=== PATIENT | female | born 2000 | race African-American/Black ===

== ENCOUNTER 2024-04-02 08:00 | Outpatient (CLI) | payer OTHER | END 2024-04-02 23:59 | disposition home or self-care (01) | LOC: LAB.N 08:00 | PROVIDERS: ATTEND Physician Assistant Medical | DX: J02.9 Acute pharyngitis, unspecified (principal) | CPT/HCPCS: 87070 ==

== ENCOUNTER 2024-04-05 18:50 | Emergency (ER) | payer OTHER ==
--- NOTE | 2024-04-05 20:11 | ED Physician Documentation ---
PD HPI HEENT - Stated complaint Stated Complaint: THROAT PX - Chief complaint Chief Complaint: Heent - History obtained from History obtained from: Patient - Additional information Additional information: HPI from patient. Patient complains of approximately 1 week of gradual onset, constant, steadily progressive left-sided posterior throat pain. Denies fever. Pain is worse with swallowing. Denies history of similar symptoms. Has had outpatient rapid strep tests x 2, both results were negative. Presents due to pain and swelling continuing to worsen. Review of Systems Constitutional: denies: Fever Throat: reports: Sore throat PD PAST MEDICAL HISTORY - Past Medical History Past Medical History: No - Past Surgical History Past Surgical History: No - Present Medications Home Medications: Ambulatory Orders Medication Instructions Recorded Confirmed Amox/Clav 875/125 [Augmentin 1 tablet PO Q12H 10 Days #20 tablet 04/05/24 875/125 Tab] Oxycodone HCl/Acetaminophen 1 - 2 each PO Q6H PRN #14 tablet 04/05/24 [Percocet 5-325 mg Tablet] - Allergies Allergies/Adverse Reactions: Allergies Allergy/AdvReac Type Severity Reaction Status Date / Time No Known Drug Allergies Allergy Verified 04/05/24 19:02 - Social History Does the pt smoke?: No Smoking Status: Never smoker Does the pt drink ETOH?: Yes Does the pt have substance abuse?: No - Immunizations Immunizations are current?: Yes PD ED PE NORMAL - Vitals Vital signs reviewed: Yes - General General: Alert and oriented X 3, No acute distress, Well developed/nourished - HEENT HEENT: Moist mucous membranes - Neck Neck: Supple, no meningeal sign PD ED PE EXPANDED - HEENT HEENT: Pharyngeal erythema, Other (left posterior oropharyngeal swelling and sandy thema) Results - Vitals Vitals: Vital Signs - 24 hr 04/05/24 04/05/24 04/05/24 18:57 21:20 23:00 Temperature 36.7 C Heart Rate 84 68 65 Respiratory 16 16 Rate Blood Pressure 135/86 H 124/80 125/74 O2 Saturation 99 98 99 04/05/24 04/05/24 23:30 23:59 Temperature Heart Rate 71 Respiratory Rate Blood Pressure 127/73 O2 Saturation 98 98 Oxygen O2 Source Room air - Labs Labs: Laboratory Tests 04/05/24 04/05/24 20:45 20:45 WBC 13.9 H RBC 4.22 Hgb 13.3 Hct 37.7 MCV 89.3 MCH 31.5 H MCHC 35.3 RDW 12.2 Plt Count 417 MPV 9.3 Neut # (Auto) 9.4 H Lymph # (Auto) 2.8 [place] # (Auto) 1.4 H Eos # (Auto) 0.2 Baso # (Auto) 0.1 Absolute Nucleated RBC 0.00 Nucleated RBC % 0.0 Sodium 136 Potassium 3.4 L Chloride 100 L Carbon Dioxide 29 Anion Gap 7.0 BUN 7 Creatinine 0.6 Estimated GFR (MDRD) 152 Glucose 86 Calcium 9.8 PD Medical Decision Making - ED course Complexity details: reviewed results, re-evaluated patient, considered differential, d/w patient ED course: Given 3 grams unasyn IV, 30 mg IV Toradol, 4 mg IV morphine. Mild leukocytosis (WBC 13.9). Unremarkable basic metabolic profile. Given that exam is suggestive of left peritonsillar abscess, I attempted needle drainage of the lesion. Patient was first given viscous lidocaine and instructed to swish around the lidocaine including towards the back of her mouth and spit the lidocaine back out. This was followed by local infiltration of 2% lidocaine with epinephrine. I then made 3 separate attempts to drain pus via 18-gauge needle attached to a 10 cc syringe but I had no pus return on any of these attempts. Note that the depth was limited to 1 cm by using a cut-down needle guard which allowed for exposure of 1 cm of the 18-gauge needle. The patient tolerated the procedure well. She is given a take-home pack of Percocet and 1 tablet of 875 mg of Augmentin. Because her throat was still numb, I instructed her to not take either of these medications until she feels that the numbness has worn off. I explained to her that once she feels the numbness is worn off, she should next take a small sip of room-temperature water to ensure that she does not have any difficulty with swallowing. I told her to then repeat this 2 or 3 more times with small sips and, if she is able to swallow the sips of water without difficulty, she should then take the provided dose of Augmentin and, if she is experiencing pain, she can also then take the Percocet as per the label instructions. I have electronically submitted prescriptions for Percocet as well as a 10-day course of Augmentin to the patient's pharmacy of choice. Return precautions were carefully and specifically reviewed, and instructed her to contact her primary care provider on Monday to arrange for the next available appointment for reevaluation. Ideally, she should be rechecked within no more than 2 or 3 days. Departure - Departure Disposition: Home, Self Care Clinical Impression: Peritonsillar cellulitis Condition: Good Instructions: ED Infec Skin Cellulitis, ED Peritonsillar Abscess, ED Peritonsillar Infec Abx No I andD Follow-Up: VIRAL FLORES MD [Primary Care Provider] - Prescriptions: Amox/Clav 875/125 [Augmentin 875/125 Tab] 1 tablet PO Q12H 10 Days #20 tablet Oxycodone HCl/Acetaminophen [Percocet 5-325 mg Tablet] 1 - 2 each PO Q6H PRN #14 tablet PRN Reason: pain Comments: Unfortunately, I was unable to extract any pus from the tonsil. This might indicate that there is no abscess (though still an obvious infection); it is also possible that the pus pocket/abscess is too small or was simply being missed by the attempts to drain with a needle. You were given an antibiotic (Unasyn) through your IV during the ER stay, and I am providing you with the first dose of another antibiotic (Augmentin) which you should take after getting home but only after the numbing medication has worn off. You can test this by drinking a small sip or two of room-temperature water. If you do not feel the water in your mouth and/or the back of your throat, do not try to swallow the water. Instead, spit out the water. If you can feel the water hit the back of your throat, and can swallow the water without aspiration (the water does not "go down the wrong pipe" into your airway), you then need to take the dose of the Augmentin. At that point, you can also take 1 or 2 tablets of the provided pain medication (Percocet). I have electronically submitted prescriptions for a 10-day course of the Augmentin as well as a prescription for the Percocet (narcotic/opiate pain medication) to the [facility] pharmacy in [place]. It is very important that you have a medical professional reevaluate the back of your throat within the next 2 to 3 days. As we discussed, if you are getting worse in any way, or you develop new/concerning signs/symptoms (such as fever, sensation that the back of the throat is closing, any difficulty breathing, unable to swallow), immediately return to the emergency department. Otherwise, contact your primary care provider when the office is next open to arrange for immediate follow-up/reevaluation appointment. Ideally, see if they can reevaluate you by the end of the day Monday. I am prescribing a short course of narcotic pain medication for you. These are potentially dangerous and addictive medications that should be used carefully. These medications may constipate you. Take an [id number] stool softener (docusate) twice daily with plenty of water while taking these medications. If you go 24 hours without a bowel movement, take [id number] miralax, per package instructions. Do not drink or drive while taking these medications. If you received narcotic or sedating medications while in the emergency department, do not drive for 24 hours. Store this medication in a safe, secure place and out of reach of children. It is a violation of federal law to give or sell this medication to another person or to use in a manner other than prescribed. The ED will not refill narcotic prescriptions, including prescriptions lost or stolen. To dispose of unwanted medications: 1. [facility] at [address] in [place] has a medication drop box. They accept prescription medications (in pill form) Monday through Monday 9:00 a.m. to 5:00 p.m. 2. [facility] [employer] accepts prescription medications (in pill form only) for disposal year round. Call for more information. 3. Contact the [facility] for the next [facility] sponsored prescription drug collection event. , [phone], or [phone]; Discharge Date/Time: 04/05/24 23:59
[2024-04-05] MEDS: KETOROLAC 30 MG/ML VIAL IVP STA (20:46)
[2024-04-05] MEDS: MORPHINE 2 MG/ML CARPUJECT IVP STA (20:47)
[2024-04-05] MEDS: AMPICILLIN/SULBACTAM 3 GM in SODIUM CHLORIDE 0.9% MINIBAG 100 ML IV STA (20:51)
[2024-04-05 21:19] LABS: BASOPHILS # (AUTO) 0.1 10^3/uL (0.0-0.1); BASOPHILS % (AUTO) 0.6 %; EOSINOPHILS # (AUTO) 0.2 10^3/uL (0.0-0.7); EOSINOPHILS % (AUTO) 1.2 %; HCT - HEMATOCRIT 37.7 % (37.0-47.0); HGB - HEMOGLOBIN 13.3 g/dL (12.0-16.0); LYMPHOCYTES # (AUTO) 2.8 10^3/uL (1.5-3.5); LYMPHOCYTES % (AUTO) 20.3 %; MEAN CORPUSCULAR HEMOGLOBIN 31.5 pg (27.0-31.0); MEAN CORPUSCULAR HGB CONC 35.3 g/dL (32.0-36.0); MEAN CORPUSCULAR VOLUME 89.3 fL (81.0-99.0); MEAN PLATELET VOLUME 9.3 fL (7.9-10.8); MONOCYTES # (AUTO) 1.4 10^3/uL (0.0-1.0); MONOCYTES % (AUTO) 9.9 %; NEUTROPHILS # (AUTO) 9.4 10^3/uL (1.5-6.6); NEUTROPHILS % (AUTO) 67.6 %; PLT - PLATELET COUNT 417 10^3/uL (130-450); RED BLOOD COUNT 4.22 10^6/uL (4.20-5.40); RED CELL DISTRIBUTION WIDTH 12.2 % (12.0-15.0); WHITE BLOOD COUNT 13.9 x10^3/uL (4.8-10.8)
[2024-04-05 21:24] VITALS: O2SAT 98
[2024-04-05 21:35] LABS: CALCIUM 9.8 mg/dL (8.5-10.3); CREATININE 0.6 mg/dL (0.6-1.3); POTASSIUM 3.4 mmol/L (3.5-4.5)
[2024-04-05] MEDS: LIDOCAINE 2%-EPI 1:100000 20 ML MDV SUBQ STA (22:16)
[2024-04-05] MEDS: LIDOCAINE VISCOUS 2% 15 ML UDC MM STA (22:52)
[2024-04-05] MEDS: BENZOCAINE/TETRACAINE/BUTAMBEN 20 GM TOP STA (22:52)
[2024-04-05] MEDS: oxyCODONE/ACET 5/325 Prepack 4 PO STA (23:45)
[2024-04-05] MEDS: AMOX/CLAV 875 MG/125 MG TABLET PO STA (23:46)
[2024-04-06 00:01] VITALS: BP 127/73
== END 2024-04-05 23:59 | disposition home or self-care (01) ==
LOC: ED 18:50
DX: J36 Peritonsillar abscess (principal)
CPT/HCPCS: 36415; 42700; 80048; 85025; 96365; 96375; 99284; A9270